=== PATIENT | male | born 1935 | race Caucasian/White ===

== ENCOUNTER 2018-09-18 10:36 | Day surgery (SDC) | payer OTHER ==
[2018-09-18] MEDS ORDERED: PROPOFOL 20 ML (13:17)
[2018-09-18] MEDS ORDERED: FENTAnyl 50 MCG/ML VIAL (13:18)
== END 2018-09-18 15:47 | disposition home or self-care (01) ==
LOC: GIL 10:36 → SDS 10:36 → GIL 10:36
DX: R19.5 Other fecal abnormalities (principal); K29.30 Chronic superficial gastritis without bleeding; I48.0 Paroxysmal atrial fibrillation; E11.9 Type 2 diabetes mellitus without complications; I13.0 Hypertensive heart and chronic kidney disease with heart failure and stage 1 through stage 4 chronic kidney disease, or unspecified chronic kidney disease; I50.9 Heart failure, unspecified; N18.9 Chronic kidney disease, unspecified
CPT/HCPCS: 43239; 88305; 88312